=== PATIENT | female | born 1985 | race American Indian/Alaskan Native ===

== ENCOUNTER 2019-09-25 12:13 | Emergency (ER) | payer SELFPAY ==
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
[2019-09-25 12:24] VITALS: BP 118/69
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
== END 2019-09-25 15:51 | disposition left against medical advice (07) ==
LOC: ED 12:13
DX: M79.10 Myalgia, unspecified site (principal); Z53.21 Procedure and treatment not carried out due to patient leaving prior to being seen by health care provider